=== PATIENT | female | born 1955 | race African-American/Black ===

== ENCOUNTER 2021-03-13 18:30 | Emergency (ER) | payer OTHER, MEDICAID ==
[~2021-03-13] VITALS: Ht 172.7 cm; Wt 73.0 kg
[2021-03-13] MEDS ORDERED: ATOR20TA65 PO ×2 (19:11→22:55)
[2021-03-13] MEDS ORDERED: PHEN100C4 PO ×2 (19:11→22:55)
[2021-03-13] MEDS ORDERED: FAMOTIDINE 20MG TABLET PO ONE (21:15)
[2021-03-13] MEDS ORDERED: METR70GE17 VG (22:55)
[2021-03-13] MEDS ORDERED: OMEP20CA14 PO (22:55)
[2021-03-13 23:30] VITALS: BP 142/84
== END 2021-03-13 23:31 | disposition home or self-care (01) ==
LOC: ER 18:30
DX: N76.0 Acute vaginitis (principal); Z76.0 Encounter for issue of repeat prescription
CPT/HCPCS: 87210; 93005; 99284

== ENCOUNTER 2021-03-18 21:19 | Emergency (ER) | payer OTHER, MEDICAID ==
[~2021-03-18] VITALS: Ht 172.7 cm; Wt 73.2 kg
[~2021-03-18 21:19] MED LIST: ATOR20TA65 PO; METR70GE17 VG; OMEP20CA14 PO; PHEN100C4 PO
[2021-03-19] MEDS ORDERED: ACETAMINOPHEN 325MG TABLET PO ONE (00:15)
[2021-03-19] MEDS ORDERED: ACET-2708 MT (02:23)
[2021-03-19 02:53] VITALS: BP 137/78
== END 2021-03-19 02:54 | disposition home or self-care (01) ==
LOC: ER 21:19
DX: B34.9 Viral infection, unspecified (principal); F17.200 Nicotine dependence, unspecified, uncomplicated; Z20.822 Contact with and (suspected) exposure to COVID-19; Z88.6 Allergy status to analgesic agent; Z79.899 Other long term (current) drug therapy; Z98.890 Other specified postprocedural states; Z13.9 Encounter for screening, unspecified
CPT/HCPCS: 71045; 87426; 99284

== ENCOUNTER 2021-12-22 16:44 | Emergency (ER) | payer OTHER, MEDICAID ==
[~2021-12-22] VITALS: Ht 172.7 cm; Wt 67.0 kg
[~2021-12-22 16:44] MED LIST changes: +ACET-2708 MT
[2021-12-22 16:46] VITALS: BP 91/61
[2021-12-22 20:06] LABS: CLARITY URINE TURBID (CLEAR); COLOR URINE DARK YELLOW (YELLOW); KETONES URINE TRACE (NEGATIVE); LEUKOCYTE ESTERASE URINE 2+ (NEGATIVE); NITRITE URINE NEGATIVE (NEGATIVE); OCCULT BLOOD URINE 3+ (NEGATIVE); PROTEIN URINE 2+ (NEGATIVE); SPECIFIC GRAVITY URINE 1.024 (1.005-1.030)
[2021-12-22 21:02] LABS: BASOPHILS % 0.2 % (0.0-2.0); EOSINOPHILS % 0.5 % (0.0-5.0); HEMATOCRIT. 37.3 % (36.0-48.0); HEMOGLOBIN. 12.4 g/dL (12.0-16.0); LYMPHOCYTES % 27.3 % (20.0-50.0); MEAN CORPUSCULAR HEMOGLOBIN 32.1 pg (28.0-32.0); MEAN PLATELET VOLUME 8.7 fl (7.4-10.4); MONOCYTES % 7.4 % (2.0-8.0); NEUTROPHILS % 64.6 % (40.0-76.0); PLATELET 318 x1000/uL (130-400); RED BLOOD CELL COUNT 3.85 mill/uL (4.2-5.4); RED CELL DISTRIBUTION WIDTH 12.4 % (11.6-14.6)
[2021-12-22 21:08] LABS: PROTHROMBIN TIME 10.3 sec (9.6-11.0)
[2021-12-22 21:13] LABS: CHLORIDE 110 mEq/L (98-107)
[2021-12-22] MEDS ORDERED: NITR-87 MT (21:36)
== END 2021-12-22 22:24 | disposition home or self-care (01) ==
LOC: ER 16:44
DX: N93.8 Other specified abnormal uterine and vaginal bleeding (principal); N39.0 Urinary tract infection, site not specified; Q27.30 Arteriovenous malformation, site unspecified; Z88.6 Allergy status to analgesic agent
CPT/HCPCS: 36415; 76830; 76856; 80053; 81003; 85025; 99284

== ENCOUNTER 2022-01-23 20:55 | Emergency (ER) | payer OTHER, MEDICAID ==
[~2022-01-23] VITALS: Ht 172.7 cm; Wt 66.0 kg
[~2022-01-23 20:55] MED LIST changes: +NITR-87 MT
[2022-01-23 21:48] VITALS: BP 125/74
[2022-01-24 00:02] LABS: BASOPHILS % 0.2 % (0.0-2.0); EOSINOPHILS % 0.9 % (0.0-5.0); HEMATOCRIT. 36.1 % (36.0-48.0); HEMOGLOBIN. 11.9 g/dL (12.0-16.0); LYMPHOCYTES % 36.1 % (20.0-50.0); MEAN CORPUSCULAR HEMOGLOBIN 31.6 pg (28.0-32.0); MEAN PLATELET VOLUME 8.1 fl (7.4-10.4); MONOCYTES % 6.3 % (2.0-8.0); NEUTROPHILS % 56.5 % (40.0-76.0); PLATELET 306 x1000/uL (130-400); RED BLOOD CELL COUNT 3.76 mill/uL (4.2-5.4); RED CELL DISTRIBUTION WIDTH 11.9 % (11.6-14.6)
[2022-01-24 00:25] LABS: CHLORIDE 108 mEq/L (98-107)
[2022-01-24] MEDS ORDERED: ALBUTEROL (0.083%) 2.5MG/3ML NEB HHN ONE (01:00)
== END 2022-01-24 01:17 | disposition home or self-care (01) ==
LOC: ER 20:55
DX: R05.9 Cough, unspecified (principal); K21.9 Gastro-esophageal reflux disease without esophagitis; E78.00 Pure hypercholesterolemia, unspecified; Z98.51 Tubal ligation status; Z79.899 Other long term (current) drug therapy
CPT/HCPCS: 36415; 71045; 80053; 83880; 85025; 99284